=== PATIENT | female | born 1990 | race Caucasian/White ===

== ENCOUNTER 2020-02-18 12:41 | Inpatient (IN) ==
[2020-02-18] MEDS ORDERED: 0.9 % Sodium Chloride 1,000 ML IVC ONE ×2 (13:49→15:58)
[2020-02-18 14:28] LABS: INR 1.2; Prothrombin Time 13.9 Seconds (9.4-12.1)
[2020-02-18 14:31] LABS: Activated Partial Thrombo Time 27.9 Seconds (26.0-36.0)
[2020-02-18 14:37] LABS: Basophils # 0.1 K/mcL (0.0-0.2); Basophils % 0.6 %; Eosinophils % 0.3 %; Hematocrit 44.1 % (35.3-44.9); Hemoglobin 15.1 g/dL (11.5-15.4); Immature Granulocytes % 0.4 % (0-4); Lymphocytes # 1.5 K/mcL (0.6-4.6); Lymphocytes % 15.8 %; Mean Corpuscular HGB Conc 34.2 g/dL (31.6-35.5); Mean Corpuscular Hemoglobin 30.1 pg (28.0-33.3); Mean Corpuscular Volume 87.8 fL (83.0-100.0); Mean Platelet Volume 10.3 fL (9.4-12.4); Monocytes # 0.6 K/mcL (0.0-1.3); Monocytes % 5.8 %; Neutrophils # 7.5 K/mcL (1.6-8.9); Platelet Count 326 K/mcL (140-400); Red Blood Count 5.02 M/mcL (3.82-4.97); Red Cell Distribution Width 12.9 % (11.5-14.5); Segmented Neutrophils % 77.1 %; White Blood Count 9.7 K/mcL (4.3-11.1)
[2020-02-18 15:03] LABS: Alanine Aminotransferase 49 Units/L (7-52); Albumin 4.7 g/dL (3.5-5.7); Albumin/Globulin Ratio 1.8 (1.1-2.2); Alkaline Phosphatase 66 Units/L (34-104); Aspartate Amino Transferase 25 Units/L (13-39); BUN/Creatinine Ratio 17 (6-26); Bilirubin,Direct 0.1 mg/dL (0.0-0.2); Bilirubin,Indirect 0.4 mg/dL (0.0-1.0); Bilirubin,Total 0.5 mg/dL (0.3-1.0); Blood Urea Nitrogen 12 mg/dL (6-20); Calcium 9.4 mg/dL (8.6-10.3); Carbon Dioxide 21 mEq/L (23-29); Chloride 108 mEq/L (98-107); Creatine Kinase 198 Units/L (30-223); Ethanol < 10 mg/dL (Less than 10); Globulin 2.6 g/dL (2.4-3.5); Glucose 122 mg/dL (70-105); Osmolality,Calculated 293 (280-300); Potassium 3.5 mEq/L (3.5-5.1); Sodium 141 mEq/L (136-145); Thyroid Stimulating Hormone 1.455 mcIU/mL (0.340-5.600); Total Protein 7.3 g/dL (6.4-8.9); Troponin I < 0.03 ng/mL (< 0.04); eGFR For African Americans > 60 (> 60); eGFR For Non-African Americans > 60 (> 60)
[2020-02-18 15:05] LABS: Amphetamine Screen,Urine Negative ng/mL (Cutoff=1000); Barbiturate Screen,Urine Negative ng/mL (Cutoff=200); Benzodiazepines Screen,Urine Negative ng/mL (Cutoff=200); Cannabinoid Screen,Urine Negative ng/mL (Cutoff = 50); Cocaine Screen,Urine Negative ng/mL (Cutoff= 300); Opiate Screen,Urine Negative ng/mL (Cutoff=300); Phencyclidine Screen,Urine Negative ng/mL (Cutoff=25)
[2020-02-18 15:24] LABS: Amorphous Sediment,Urine Few per hpf (None-Few); Bilirubin,Urine Negative (Negative); Blood,Urine Negative (Negative); Clarity,Urine Ex.Turbid (Clear); Color,Urine Yellow (Yellow); Glucose,Urine (UA) Normal (Normal); Ketones,Urine Negative (Negative); Leukocyte Esterase,Urine Trace (Negative); Mucus,Urine Few per lpf (None-Few); Nitrite,Urine Positive (Negative); Protein,Urine Trace mg/dL (Neg-Trace); RBC,Urine 0-3 per hpf (0-3); Specific Gravity,Urine 1.023 (1.010-1.025); Squamous Epithelial Cell,Urine Few per hpf (None-Few); Transitional Epi Cells,Urine Few per hpf (None-Few); Urobilinogen,Urine Normal (Normal)
[2020-02-18] MEDS ORDERED: cephALEXin 500 MG CAPSULE PO STA (15:55)
[2020-02-18 20:36] LABS: Acetaminophen < 10 mcg/mL (10-20); Salicylate < 2.5 mg/dL (15.0-30.0)
[2020-02-18 23:37] LABS: Adenovirus Not Detected (Not Detect); Bordetella Pertussis Not Detected (Not Detect); Chlamydophila pneumoniae Not Detected (Not Detect); Coronavirus 229E Not Detected (Not Detect); Coronavirus HKU1 Not Detected (Not Detect); Coronavirus NL63 Not Detected (Not Detect); Coronavirus OC43 Not Detected (Not Detect); Human Metapneumovirus Not Detected (Not Detect); Human Rhinovirus/Enterovirus Not Detected (Not Detect); Influenza A Subtype 2009 H1 Not Detected (Not Detect); Influenza B Not Detected (Not Detect); Mycoplasma pneumoniae Not Detected (Not Detect); Parainfluenza Virus 1 Not Detected (Not Detect); Parainfluenza Virus 2 Not Detected (Not Detect); Parainfluenza Virus 3 Not Detected (Not Detect); Parainfluenza Virus 4 Not Detected (Not Detect); Respiratory Syncytial Virus Not Detected (Not Detect); SARS-CoV-2 Not Detected (Not Detect)
[2020-02-19] MEDS ORDERED: haloperidoL 5 MG TABLET PO PRN (00:03)
[2020-02-19] MEDS ORDERED: Acetaminophen 325 MG TABLET PO PRN (00:03)
[2020-02-19] MEDS ORDERED: Haloperidol Lactate 5 MG/ML VIAL IM PRN (00:03)
[2020-02-19] MEDS ORDERED: hydrOXYzine pamoate 25 MG CAPSULE PO PRN (00:03)
[2020-02-19] MEDS ORDERED: *HR* LORazepam 2 MG/ML VIAL IM PRN (00:03)
[2020-02-19] MEDS ORDERED: Mag Hydrox/Al Hydrox/Simeth 30 ML UDC PO PRN (00:03)
[2020-02-19] MEDS ORDERED: *HR* LORazepam 1 MG TABLET PO PRN (00:03)
[2020-02-19] MEDS ORDERED: MOM Conc 10 ML UD.LIQ PO PRN (00:03)
[2020-02-19] MEDS ORDERED: traZODone 50 MG TABLET PO PRN (00:03)
[2020-02-19] MEDS ORDERED: ALPRAZolam 1 MG TABLET PO ONE (13:07)
[2020-02-19] MEDS: cephALEXin 500 MG CAPSULE PO SCH ×2 (15:00→20:18)
[2020-02-19] MEDS: ALPRAZolam 1 MG TABLET PO SCH (20:18)
[2020-02-20] MEDS ORDERED: Aspirin Enteric Coated 81 MG Tablet PO SCH (09:00)
[2020-02-20 09:19] VITALS: BP 106/79
[2020-02-20] MEDS: ALPRAZolam 1 MG TABLET PO SCH (09:28)
[2020-02-20] MEDS: cephALEXin 500 MG CAPSULE PO SCH (09:28)
== END 2020-02-20 11:40 | disposition home or self-care (01) | DRG 756 ==
LOC: EMEROOARM 12:41 → 1ANU 23:54
PROVIDERS: ADMIT Psychiatry & Neurology Psychiatry; ATTEND Psychiatry & Neurology Psychiatry

== ENCOUNTER 2021-02-08 19:44 | Observation (INO) ==
[2021-02-09] MEDS ORDERED: 0.9 % Sodium Chloride 1,000 ML IVC ONE (01:54)
[2021-02-09] MEDS ORDERED: Isovue-370 500 ML BOTTLE IVP ONE (01:54)
[2021-02-09 02:35] LABS: Basophils # 0.1 K/mcL (0.0-0.2); Basophils % 0.7 %; Eosinophils # 0.3 K/mcL (0.0-0.6); Hematocrit 42.6 % (35.3-44.9); Hemoglobin 14.6 g/dL (11.5-15.4); Immature Granulocytes % 0.5 % (0-4); Lymphocytes # 1.8 K/mcL (0.6-4.6); Lymphocytes % 16.5 %; Mean Corpuscular HGB Conc 34.3 g/dL (31.6-35.5); Mean Corpuscular Hemoglobin 30.1 pg (28.0-33.3); Mean Corpuscular Volume 87.8 fL (83.0-100.0); Mean Platelet Volume 10.3 fL (9.4-12.4); Monocytes # 0.9 K/mcL (0.0-1.3); Monocytes % 8.6 %; Neutrophils # 7.5 K/mcL (1.6-8.9); Platelet Count 352 K/mcL (140-400); Red Blood Count 4.85 M/mcL (3.82-4.97); Red Cell Distribution Width 12.4 % (11.5-14.5); Segmented Neutrophils % 70.7 %; White Blood Count 10.7 K/mcL (4.3-11.1)
[2021-02-09 02:45] LABS: INR 1.4; Prothrombin Time 15.1 Seconds (9.4-12.1)
[2021-02-09 02:47] LABS: Activated Partial Thrombo Time 32.6 Seconds (26.0-36.0)
[2021-02-09 02:59] LABS: Alanine Aminotransferase 30 Units/L (7-52); Albumin/Globulin Ratio 1.3 (1.1-2.2); Alkaline Phosphatase 79 Units/L (34-104); Aspartate Amino Transferase 19 Units/L (13-39); BUN/Creatinine Ratio 10 (6-26); Bilirubin,Direct 0.1 mg/dL (0.0-0.2); Bilirubin,Indirect 0.4 mg/dL (0.0-1.0); Bilirubin,Total 0.5 mg/dL (0.3-1.0); Blood Urea Nitrogen 6 mg/dL (6-20); Calcium 9.1 mg/dL (8.6-10.3); Carbon Dioxide 26 mEq/L (23-29); Chloride 102 mEq/L (98-107); Globulin 3.2 g/dL (2.4-3.5); Glucose 131 mg/dL (70-105); Osmolality,Calculated 285 (280-300); Potassium 3.5 mEq/L (3.5-5.1); Sodium 138 mEq/L (136-145); Total Protein 7.2 g/dL (6.4-8.9); eGFR For African Americans > 60 (> 60); eGFR For Non-African Americans > 60 (> 60)
[2021-02-09 03:00] LABS: Troponin I < 0.03 ng/mL (< 0.04)
[2021-02-09 03:13] LABS: Thyroid Stimulating Hormone 2.122 mcIU/mL (0.340-5.600)
[2021-02-09 03:15] LABS: Influenza A PCR Negative (Negative); Influenza B PCR Negative (Negative); Resp. Syncytial Virus PCR Negative (Negative)
[2021-02-09 03:19] LABS: SARS-CoV-2 by PCR (In House) Negative (Negative)
[2021-02-09] MEDS ORDERED: *HR* Heparin 5,000 UNIT/ML VIAL IVP PRN (03:46)
[2021-02-09] MEDS ORDERED: *HR* Heparin 5,000 UNIT/ML VIAL IVP ONE (03:46)
[2021-02-09] MEDS ORDERED: Heparin 25,000UNIT/250ML 1/2NS 25,000 UNIT/250 ML IV.SOLN IVC SCH (04:00)
[2021-02-09] MEDS ORDERED: Naloxone 0.4 MG/ML INJ IVP PRN ×2 (04:27→04:53)
[2021-02-09] MEDS ORDERED: Ondansetron ODT 4 MG TAB.RAPDIS SL PRN (04:53)
[2021-02-09] MEDS ORDERED: Acetaminophen 325 MG TABLET PO PRN (04:53)
[2021-02-09] MEDS: *HR* OxyCODONE Immed Rel 5 MG TABLET PO PRN ×2 (06:03→18:18)
[2021-02-09 06:45] LABS: Hematocrit 37.1 % (35.3-44.9); Mean Corpuscular Hemoglobin 30.3 pg (28.0-33.3); Mean Corpuscular Volume 89.2 fL (83.0-100.0); Mean Platelet Volume 10.5 fL (9.4-12.4); Platelet Count 310 K/mcL (140-400); Red Blood Count 4.16 M/mcL (3.82-4.97); Red Cell Distribution Width 12.4 % (11.5-14.5); White Blood Count 11.7 K/mcL (4.3-11.1)
[2021-02-09 06:46] LABS: Hemoglobin 12.6 g/dL (11.5-15.4)
[2021-02-09 06:52] LABS: Heparin anti-factor XA UFH 0.69 IU/mL (0.30-0.70); INR 1.4; Prothrombin Time 15.3 Seconds (9.4-12.1)
[2021-02-09] MEDS ORDERED: Perflutren Lipid Microsphere 1.3 ML in 0.9 % Sodium Chloride 8.7 ML IVP PRN (07:31)
[2021-02-09] MEDS: Nicotine 21 MG PATCH.TD24 TD SCH (09:03)
[2021-02-09] MEDS: Ipratropium/Albuterol Neb 3 ML IH SCH ×3 (10:24→20:51)
[2021-02-09] MEDS: *HR* HYDROcodone/Acet 5/325 mg TABLET PO PRN ×2 (12:00→20:33)
[2021-02-09] MEDS: *HR* Heparin 5,000 UNIT/ML VIAL IVP PRN (18:53)
[2021-02-09] MEDS: Benzonatate 100 MG CAPSULE PO PRN (20:33)
[2021-02-10 01:13] LABS: Basophils # 0.1 K/mcL (0.0-0.2); Basophils % 0.8 %; Eosinophils # 0.6 K/mcL (0.0-0.6); Eosinophils % 5.4 %; Hematocrit 41.2 % (35.3-44.9); Hemoglobin 13.2 g/dL (11.5-15.4); Immature Granulocytes % 0.4 % (0-4); Lymphocytes # 2.8 K/mcL (0.6-4.6); Lymphocytes % 25.5 %; Mean Corpuscular Hemoglobin 29.3 pg (28.0-33.3); Mean Corpuscular Volume 91.6 fL (83.0-100.0); Mean Platelet Volume 10.6 fL (9.4-12.4); Monocytes # 0.9 K/mcL (0.0-1.3); Monocytes % 8.3 %; Neutrophils # 6.6 K/mcL (1.6-8.9); Platelet Count 341 K/mcL (140-400); Red Cell Distribution Width 12.4 % (11.5-14.5); Segmented Neutrophils % 59.6 %; White Blood Count 11.1 K/mcL (4.3-11.1)
[2021-02-10 01:29] LABS: BUN/Creatinine Ratio 8 (6-26); Blood Urea Nitrogen 5 mg/dL (6-20); Calcium 8.5 mg/dL (8.6-10.3); Carbon Dioxide 20 mEq/L (23-29); Chloride 104 mEq/L (98-107); Glucose 105 mg/dL (70-105); Osmolality,Calculated 284 (280-300); Potassium 3.5 mEq/L (3.5-5.1); Sodium 138 mEq/L (136-145); eGFR For African Americans > 60 (> 60); eGFR For Non-African Americans > 60 (> 60)
[2021-02-10] MEDS: *HR* Heparin 5,000 UNIT/ML VIAL IVP PRN (03:36)
[2021-02-10] MEDS: Ipratropium/Albuterol Neb 3 ML IH SCH ×4 (03:42→19:56)
[2021-02-10] MEDS ORDERED: Heparin 25,000 UNIT/250 ML 25,000 UNIT/250 ML IV.SOLN IVC SCH (06:30)
[2021-02-10] MEDS: *HR* OxyCODONE Immed Rel 5 MG TABLET PO PRN ×3 (07:34→21:36)
[2021-02-10] MEDS: Nicotine 21 MG PATCH.TD24 TD SCH (08:38)
[2021-02-10] MEDS: Apixaban 5 MG TABLET PO SCH ×2 (12:04→21:06)
[2021-02-10] MEDS: *HR* HYDROcodone/Acet 5/325 mg TABLET PO PRN (12:15)
[2021-02-11] MEDS: *HR* HYDROcodone/Acet 5/325 mg TABLET PO PRN ×2 (01:26→12:03)
[2021-02-11 03:12] VITALS: O2SAT 97
[2021-02-11] MEDS: Ipratropium/Albuterol Neb 3 ML IH SCH ×2 (04:04→07:20)
[2021-02-11 07:39] VITALS: BP 100/62; PULSE 105; TEMP 98.4
[2021-02-11] MEDS: Nicotine 21 MG PATCH.TD24 TD SCH (08:36)
[2021-02-11] MEDS: Apixaban 5 MG TABLET PO SCH (08:36)
[2021-02-11] MEDS: Benzonatate 100 MG CAPSULE PO PRN (12:03)
== END 2021-02-11 12:14 | disposition home or self-care (01) ==
LOC: EMEROOARM 19:44 → 3ANU 19:44 → SUATTDRO 02-09 04:51 → 3ANU 02-09 05:30
PROVIDERS: ADMIT Internal Medicine; ATTEND General Practice